=== PATIENT | male | born 2000 | race Caucasian/White ===

== ENCOUNTER 2020-10-01 10:34 | Emergency (ER) | payer OTHER, SELFPAY ==
[2020-10-01 10:36] VITALS: BP 126/62; PULSE 63; RESP 15; TEMP 36.3; O2SAT 99; BMI 25.7
--- NOTE | 2020-10-01 10:48 | NURSING ---
NO OLD EKGS
--- NOTE | 2020-10-01 10:59 | EKG12_ITS ---
Test Reason : CP Blood Pressure : / mmHG Vent. Rate : 059 BPM Atrial Rate : 059 BPM P-R Int : 154 ms QRS Dur : 096 ms QT Int : 422 ms P-R-T Axes : 057 040 035 degrees QTc Int : 417 ms Sinus bradycardia with sinus arrhythmia Otherwise normal ECG Confirmed by FELY DAWN, ALONDRA ([id number]), editor trade journal MULUGETA LEONARDO ([id number]) on 10/03/2020 10:39:39 A M Referred By: Confirmed By:BEAN GEIGER MD
--- NOTE | 2020-10-01 11:05 | EDS_ITS ---
HPI History of Present Illness Chief Complaint: Chest Pain Informant: patient Onset/Context/Timing Onset: Today Activity at onset: sudden Timing: Continuous Quality: Positive for Sharp Location: Left Parasternal Worsened By: Movement of Torso, Palpation and Breathing Relieved By: Nothing Associated Symptoms: Positive for Nausea, Diaphoresis and Dyspnea; Negative for Vomiting, Cough, Fever, Lightheadedness, Acid Reflux and Palpitations Narrative Narrative: Patient presents with chest pain that began today while he was at work. Patient states the pain is over the left parasternal area. Patient states the pain is sharp. Patient states pain is worse with deep breathing and palpation. Patient admits to some nausea and some shortness of breath. Patient states he did feel his heart racing earlier but states it stopped when he got to the emergency department. Patient admits to some diaphoresis. Patient denies any cough or fevers. Patient denies any lightheadedness or dizziness. Patient denies any radiation of the pain. Patient is a smoker. Patient denies any other cardiac or PE risk factors. CVD Risk Factors: Positive for Smoking; Negative for Hypertension, Diabetes, Hypercholesterolemia and Family History 1' </=55 PE Risk Factors: Negative for Recent Travel/Surgery, Recent Immobilization, Prior DVT or PE and Cancer [facility] Medical History Appendicitis Staphylococcus infection Home Medications NK 10/01/20 [History Last Taken Unknown] Allergy/AdvReac Type Severity Reaction Status Date / Time bee venom protein (honey bee) Allergy Anaphylaxis Verified 10/01/20 10:35 Surgical History H/O elbow surgery Social History Smoking Status: Current every day smoker tobacco type: cigarettes ROS ROS ED Constitutional Constitutional ED: Reports sweats; Denies chills or fever(s) Eyes Eyes: Reports blurry vision; Denies diplopia ENT ENT ED: Denies rhinorrhea or sore throat Cardiovascular Cardiovascular: Reports chest pain, palpitations and racing heartbeat Respiratory/Chest Respiratory/Chest: Reports dyspnea; Denies cough Gastrointestinal Gastrointestinal: Reports nausea; Denies abdominal pain or vomiting Genitourinary Genitourinary ED: Denies dysuria or hematuria Musculoskeletal Musculoskeletal: Denies back pain or neck pain Integumentary Denies abscess or rash Neurologic Neurologic: Denies headache(s) or weakness Allergic/Immunologic Allergic/Immunologic ED: Denies mouth swelling or urticaria EXAM Physical Exam Const Vital Signs: 10/01/20 10:36 10/01/20 10:45 10/01/20 11:09 Temperature 97.4 F L Temperature Source Temporal Pulse Rate 63 Respiratory Rate 15 Respiratory Effort Normal Non-Labored Respiratory Pattern Normal Blood Pressure 126/62 H Blood Pressure Mean 83 Pulse Ox 99 Oxygen Delivery Method Room Air Room Air 10/01/20 12:35 Temperature Temperature Source Pulse Rate 59 L Respiratory Rate 15 Respiratory Effort Respiratory Pattern Blood Pressure Blood Pressure Mean Pulse Ox 98 Oxygen Delivery Method Room Air Positive well nourished and well developed General Appearance ED: well developed HEENT normocephalic and atraumatic Eyes PERRL and EOMs intact bilaterally Neck supple and no JVD Chest Wall inspection of chest normal Chest: tenderness pectoral muscle left and sternum Resp normal respiratory effort and clear to auscultation bilaterally Effort and Inspection: Negative for respiratory distress Cardio regular rate, regular rhythm and no murmurs GI normal to inspection, nondistended, normoactive bowel sounds, soft to palpation, non-tender and non-distended Extremity normal to inspection General Extremety ED: Negative for edema or tenderness General Extremity: Negative for edema Neuro oriented x3, CN's II-XII intact bilaterally and no sensory deficits noted Sensorium / Orientation: awake and alert Motor Exam: strength 5/5 throughout Psych mental status grossly normal Heart Score History: Slightly/Non-Suspicious ECG: Normal Age: </= 45 years Risk Factors: 1 or 2 Risk Factors Troponin: </= Normal Limit Score: 1 MDM MDM MDM Narrative Medical decision making narrative: Patient was given aspirin here. EKG was obtained. On my interpretation, it showed a normal sinus rhythm with a rate of 59. MT interval, QRS interval, and QTc intervals were all normal. [place] was normal. There are no acute ST or T wave changes. Portable 1 view chest x-ray was obtained. On my interpretation, lung hatfield are clear. There is normal cardiac silhouette. Bony thorax is normal. There is no acute process noted. Radiologist also interpreted the x-ray and agrees. CBC, basic metabolic profile, and troponin were obtained and were all within normal limits. Patient has a HEART score of 1. Patient was advised that this is low risk for acute cardiac event. Patient was advised that this most likely is musculoskeletal cause of his chest pain. Patient was instructed to take Tylenol or ibuprofen as needed for pain. Patient was instructed to follow-up with his primary care physician in 5 to 7 days. Patient understood and was agreeable with the plan. All questions were answered. Lab Data Labs: Laboratory Results - last 24 hr 10/01/20 10/01/20 11:05 11:05 WBC 5.8 RBC 4.86 Hgb 14.4 Hct 42.7 MCV 87.9 MCH 29.6 MCHC 33.7 RDW Std Deviation 39.3 RDW Coeff of Jaguar 12.0 Plt Count 175 MPV 9.6 Immature Gran % (Auto) 0.700 Neut % (Auto) 63.1 Lymph % (Auto) 23.3 [place] % (Auto) 9.0 Eos % (Auto) 3.6 Baso % (Auto) 0.3 Absolute Neuts (auto) 3.7 Absolute Lymphs (auto) 1.35 Nucleated RBC % 0 Sodium 139 Potassium 4.0 Chloride 105 Carbon Dioxide 30.0 Anion Gap 4 L BUN 16 Creatinine 0.86 Estim Creat Clear Calc 159.30 Est GFR (MDRD) Af Amer 144 Est GFR (MDRD) Non-Af 119 BUN/Creatinine Ratio 18.5 Glucose 82 Calcium 9.0 Troponin I < 0.015 Radiography Chest X-Ray - ED: 1 View, Read by ED Physician, Read by Radiologist and Normal Diagnostic Testing: Radiology Impression Chest X-Ray 10/01/20 11:20 IMPRESSION: Normal x-ray examination of the chest. Electronically Signed: Nuno Lozano MD at 11:54 EDT , Service support , EKG Initial EKG: Attestation: I personally reviewed and interpreted this EKG as follows: Interpretation: Sinus Rhythm (59) and No Acute Injury Pattern Prior EKG tracings: not available for review Discharge Plan Triage Chief Complaint: Chest Pain ED Provider: Genrty Pink Dx/Rx/DC Orders Clinical Impression: Chest pain of uncertain etiology Instructions: ED Chest Pain, Uncertain Cause Prescriptions: No Action NK RF: 0 Stand Alone Forms: ED Work / School Excuse Primary Care Provider: Deann Howard NP Referrals: Deann Howard NP, [employer] [Primary Care Provider] - 5-7 Days Disposition Disposition: Home, self care
[2020-10-01] MEDS: Aspirin 81 MG TAB.CHEW 324 MG PO (11:13)
[2020-10-01 11:16] LABS: Absolute Lymphocyte Count 1.35 X10^3/uL (0.83-4.51); Absolute Neutrophil Count 3.7 X10^3/uL (2.0-7.7); Basophil# 0.02 X10^3/uL; Basophil% 0.3 % (0-1); Eosinophil# 0.21 X10^3/uL; Eosinophils% 3.6 % (0-5); Hematocrit 42.7 % (40-54); Hemoglobin 14.4 g/dL (13.0-16.5); Lymphocyte # 1.35 X10^3/ul (0.83-4.51); Lymphocyte % 23.3 % (19-41); Mean Corp Hgb Conc 33.7 g/dL (32-36); Mean Corpuscular Hgb 29.6 pg (27.0-32.0); Mean Corpuscular Volume 87.9 fL (80-94); Mean Platelet Vol. 9.6 fl (6.2-12.0); Monocyte# 0.52 X10^3/uL; NRBC Flagged by Analyzer 0 % (0-5); Neutrophil # 3.65 X10^3/uL (2.7-7.7); Neutrophil % 63.1 % (47-70); Platelet Count 175 K/mm3 (150-450); RBC Distribution Width SD 39.3 fl (35.1-43.9); Red Blood Count 4.86 M/mm3 (4.6-6.2); White Blood Count 5.8 K/mm3 (4.4-11.0)
--- NOTE | 2020-10-01 11:20 | RAD_ITS ---
STUDY: X-RAY CHEST REASON FOR EXAM: Male, 19 years old. Chest pain TECHNIQUE: Single AP portable view of the chest. COMPARISON: None. FINDINGS: EKG electrodes are seen. The lungs are clear and expanded. There is no demonstrated pleural abnormality. Normal size heart. Normal mediastinum and silas. Normal visualized pulmonary arteries. Normal visualized aortic arch and descending thoracic aorta. Normal visualized thoracic spine. Normal visualized ribs, clavicles, and shoulders. There is no demonstrated abnormality of the visualized soft tissue structures of the upper abdomen. RAD/Chest 1 View (Portable) IMPRESSION: Normal x-ray examination of the chest. Electronically Signed: Nuno Lozano MD at 11:54 EDT , Service support ,
[2020-10-01 11:34] LABS: Anion Gap 4 (5-15); BUN 16 mg/dL (7-18); BUN/Creat Ratio 18.5 RATIO (10-20); Chloride 105 mmol/L (98-107); Creatinine, Serum 0.86 mg/dL (0.70-1.30); EST Glomerular Filtration Rate 119 mL/min (>60); Est Glom Filt Rate - Afr Amer 144 mL/min (>60); Glucose 82 mg/dL (74-106); Sodium Level 139 mmol/L (136-145)
[2020-10-01 12:35] VITALS: PULSE 59; RESP 15; O2SAT 98
[2020-10-01 12:49] VITALS: BP 155/54; PULSE 55; RESP 2; O2SAT 99
== END 2020-10-01 12:51 | disposition home or self-care (01) ==
PROVIDERS: Emergency Provider Emergency Medicine; PCP Nurse Practitioner Family
DX: R07.9 Chest pain, unspecified (principal); R06.02 Shortness of breath; R11.0 Nausea; F17.210 Nicotine dependence, cigarettes, uncomplicated
CPT/HCPCS: 71045; 80048; 84484; 85025; 93005; 99285

== ENCOUNTER 2020-11-04 07:06 | Emergency (ER) | payer OTHER, SELFPAY ==
[2020-11-04 07:07] VITALS: BP 138/69; PULSE 58; RESP 16; TEMP 37.1; O2SAT 98; BMI 25.5
--- NOTE | 2020-11-04 07:32 | CT_ITS ---
STUDY: CT BRAIN WITHOUT CONTRAST REASON FOR EXAM: Male, 19 years old. Injury RADIATION DOSAGE (If Supplied By Facility): CTDIvol = ( 44.99 ) mGy, DLP = ( 745.49 ) mGycm TECHNIQUE: Transaxial CT imaging of the brain was performed without administration of intravenous contrast material. Individualized dose optimization techniques were used for this CT. COMPARISON: None. FINDINGS: There is no acute bleed or infarct. There are normal white matter tracts. The ventricles are normal in configuration. There is no hydrocephalus. The visualized paranasal sinuses are clear. The mastoid air cells are well aerated. There is no skull fracture. CT/Brain/Head without Contrast IMPRESSION: No acute intracranial abnormality. Electronically Signed: Clinton Ledesma MD at 8:57 EDT Tel , Service support ,
--- NOTE | 2020-11-04 07:32 | CT_ITS ---
STUDY: CT FACIAL BONES WITHOUT CONTRAST REASON FOR EXAM: Male, 19 years old. Injury RADIATION DOSAGE (If Supplied By Facility): CTDIvol = ( 29.38 ) mGy, DLP = ( 554.80 ) mGycm TECHNIQUE: The patient was scanned in a multi detector CT scanner. Sagittal and coronal images were reconstructed. Individualized dose optimization techniques were used for this CT. COMPARISON: None. FINDINGS: Normal soft tissue structures. Normal orbital tracey and orbital contents. Normal nasal bones and anterior nasal spine. Normal facial bones. There is no demonstrated fracture. Normal visualized paranasal sinuses. CT/Sinus/Facial Bone IMPRESSION: Normal unenhanced CT of the facial bones. Electronically Signed: Clinton Ledesma MD at 9:05 EDT Tel , Service support ,
--- NOTE | 2020-11-04 07:33 | EDS_ITS ---
HPI History of Present Illness Chief Complaint: Head Injury Detail of Chief Complaint: Head and face injury while at work about 45 minutes ago Informant: patient Onset/Context/Timing Current Severity: 09/25 Narrative Narrative: Patient presents to the emergency department from work after sustaining head and face injury. 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 The centerless grinder tender struck him on the right side of the helmet and forehead causing him to almost lose consciousness he states. Patient states everything kind of went dark and currently is complaining of headache and some blurred vision. Patient rates his headache a 6 out of 10. Patient also states that his entire face is numb. He denies any neck pain or paresthesias in his arms. Patient states that the centerless grinder tender broke the top of the helmet. Patient did not sustain any lacerations. He has no medical history otherwise. [facility] Medical History (Updated 11/04/20 @ 09:[address] Oneil Llanes DO) Anxiety Appendicitis Bipolar disorder Staphylococcus infection Home Medications NK 10/01/20 [History Last Taken Unknown] Allergy/AdvReac Type Severity Reaction Status Date / Time bee venom protein (honey bee) Allergy Anaphylaxis Verified 10/01/20 10:35 Surgical History H/O elbow surgery Social History Smoking Status: Current every day smoker tobacco type: cigarettes and e- cigarettes ROS ROS ED Constitutional Constitutional ED: Reports systems reviewed and no addt'l complaints, except as documented; Denies body ache(s), change in weight or chills Eyes Eyes: Reports blurry vision; Denies acute decrease in peripheral vision, change in vision, double vision or loss of vision ENT ENT ED: Reports none; Denies ear pain, lip swelling, loss taste/smell, neck pain, otalgia or sore throat Cardiovascular Cardiovascular: Reports none; Denies abdominal pain, chest pain with activity, leg edema, lightheadedness, palpitations, rapid heart rate or syncope Respiratory/Chest Respiratory/Chest: Reports none; Denies change in mental status, dry cough, dyspnea, hemoptysis, shortness of breath at rest or shortness of breath with exertion Gastrointestinal Gastrointestinal: Reports none; Denies abdominal pain, change in stool character, diarrhea, hematemesis, hematochezia, melena, rectal bleeding or vomiting Genitourinary Genitourinary ED: Reports none; Denies abdominal discomfort, anuria, dysuria, genital pain or polyuria Musculoskeletal Musculoskeletal: Reports none; Denies arthralgias, back pain, difficulty wal ran, extremity pain, muscle weakness or myalgias Integumentary Reports none; Denies abscess or rash Neurologic Neurologic: Reports none, headache(s) and paresthesias; Denies abnormal gait, confusion, focal weakness, frequent falls, loss of vision, numbness, radicular pain, vertigo or weakness Psychiatric Psychiatric: Reports systems reviewed and no addt'l complaints, except as documented and none; Denies behavioral changes, confusion, difficulty concentrating, hallucinations, suicidal ideation, tactile hallucinations or visual hallucinations Endocrine Endocrinology: Denies none, cold intolerance, excessive sweating, fatigue or heat intolerance Hematologic/Lymphatic Hematologic/Lymphatic: Reports none; Denies anemia, easy bleeding or easy bruising Allergic/Immunologic Allergic/Immunologic ED: Denies as per HPI, none, lip swelling, mouth swelling, throat swelling, tongue swelling or hives EXAM Physical Exam Const Vital Signs: 11/04/20 07:07 11/04/20 07:17 Temperature 98.7 F Temperature Source Oral Pulse Rate 58 L Respiratory Rate 16 Respiratory Effort Normal Non-Labored Respiratory Depth Normal Respiratory Pattern Normal Blood Pressure 138/69 H Blood Pressure Mean 92 Pulse Ox 98 Oxygen Delivery Method Room Air Room Air Positive well nourished and well developed General Appearance ED: well developed and NAD HEENT Reports TM's clear and moist mucous membranes HEENT Narrative: Patient has tenderness palpation over the right mandible as well as right zygomatic arch. No significant ecchymosis or bruising or soft tissue swelling noted. I do not appreciate any malocclusion although patient states that his teeth do not quite feel like they fit together normally. normocephalic and atraumatic; Negative for trauma or tenderness Tympanic Membrane ED: Yes TM's clear Eyes PERRL and EOMs intact bilaterally General Eye ED: Negative for pale conjunctiva or scleral icterus Neck no lymphadenopathy, supple and no JVD Neck Narrative: No midline tenderness on exam of the cervical spine. He got some mild tenderness over the right cervical paraspinal musculature. General: Negative for tenderness Chest Wall inspection of chest normal and palpation of chest normal Chest: Negative for tenderness Resp normal respiratory effort and clear to auscultation bilaterally Effort and Inspection: Negative for respiratory distress or pain with movement Auscultation: Negative for rhonchi, wheezes or diminished lung sounds Cardio regular rate, regular rhythm, S1 normal heart sound, S2 normal heart sound and no murmurs Peripheral Pulses: pulses 2+ throughout GI normal to inspection, nondistended, normoactive bowel sounds, soft to palpation, non-tender, non-distended and no masses Back/Spine no CVA tenderness and no thoracic nor lumbar tenderness Extremity normal to inspection General Extremety ED: Negative for edema General Extremity: Negative for edema Neuro oriented x3, CN's II-XII intact bilaterally, no sensory deficits noted and gait normal Sensorium / Orientation: awake, alert, oriented to person, oriented to place and oriented to time Motor Exam: strength 5/5 throughout and strength abnormal Psych mental status grossly normal Skin no rashes or lesions noted and no wounds MDM MDM MDM Narrative Medical decision making narrative: CT imaging of head and facial bones was unremarkable. I suspect patient likely has mild concussion. We will give him some work restrictions. Patient advised use ibuprofen or Tylenol for discomfort . Patient to follow-up with [facility] care in 3 to 5 days. Radiography Diagnostic Testing: Radiology Impression Brain CT 11/04/20 07:32 IMPRESSION: No acute intracranial abnormality. Electronically Signed: Clinton Ledesma MD at 8:57 EDT Tel , Service support , Discharge Plan Triage Chief Complaint: Head Injury ED Provider: Oneil Llanes Dx/Rx/DC Orders Clinical Impression: Closed head injury, Concussion, Contusion of face Instructions: ED Concussion, ED Facial Contusion Prescriptions: No Action NK RF: 0 Primary Care Provider: Deann Howard NP [facility] [GROUP OF PHYSICIANS] - 3-5 Days Deann Howard NP, [employer] [Primary Care Provider] - Disposition Disposition: Home, Self Care
--- NOTE | 2020-11-04 07:46 | ED.RN ---
corporate care notified of required testing
[2020-11-04 09:15] VITALS: BP 128/80; PULSE 51; RESP 16; O2SAT 97
== END 2020-11-04 09:17 | disposition home or self-care (01) ==
PROVIDERS: Emergency Provider Emergency Medicine; PCP Nurse Practitioner Family
DX: S06.0X9A Concussion with loss of consciousness of unspecified duration, initial encounter (principal); S00.83XA Contusion of other part of head, initial encounter; W20.8XXA Other cause of strike by thrown, projected or falling object, initial encounter; Y93.9 Activity, unspecified; Y92.9 Unspecified place or not applicable; Y99.0 Civilian activity done for income or pay; F17.210 Nicotine dependence, cigarettes, uncomplicated
CPT/HCPCS: 70450; 70486; 99282

== ENCOUNTER 2020-11-11 10:44 | Emergency (ER) | payer OTHER, SELFPAY ==
[2020-11-11 10:46] VITALS: BP 116/60; PULSE 52; RESP 16; TEMP 36.7; O2SAT 100; BMI 24.3
--- NOTE | 2020-11-11 11:03 | EKG12_ITS ---
Test Reason : PALP Blood Pressure : / mmHG Vent. Rate : 053 BPM Atrial Rate : 053 BPM P-R Int : 156 ms QRS Dur : 098 ms QT Int : 462 ms P-R-T Axes : 043 040 022 degrees QTc Int : 433 ms Sinus bradycardia with sinus arrhythmia Otherwise normal ECG Confirmed by MAHAD DAWN, TIMUR ([id number]), acquisition editor MULUGETA LEONARDO ([id number]) on 11/13/2020 9:57:59 AM Referred By: BRENDA Confirmed By:TIMUR TOBIN MD
--- NOTE | 2020-11-11 11:05 | EDS_ITS ---
HPI History of Present Illness Chief Complaint: Confusion Informant: patient Onset/Context/Timing Onset: Today Context: Sudden Onset Timing: Intermittent Quality: Weakness, numbness Location: Generalized Worsened by: Movement, standing Relieved by: Nothing Narrative Narrative: Patient presents with palpitations that began today while he was at work. 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 Patient states the heat from the wild caught some pain in his chest. Patient states after that he felt like his heart was racing. Patient states this would come and go. Patient states it would last for a few seconds and then resolved. Patient states she also has been having some generalized weakness and numbness. Patient states this is worse with standing and with movement. Patient denies any shortness of breath. Patient denies any nausea or vomiting. Patient denies any fevers or chills. [facility] Medical History Anxiety Appendicitis Bipolar disorder Staphylococcus infection Home Medications NK 10/01/20 [History Last Taken Unknown] Allergy/AdvReac Type Severity Reaction Status Date / Time bee venom protein (honey bee) Allergy Anaphylaxis Verified 11/11/20 11:19 Surgical History H/O elbow surgery Social History Smoking Status: Current every day smoker tobacco type: cigarettes ROS ROS ED Constitutional Constitutional ED: Denies chills or fever(s) Eyes Eyes: Denies blurry vision or change in vision ENT ENT ED: Denies rhinorrhea or sore throat Cardiovascular Cardiovascular: Reports chest pain and palpitations Respiratory/Chest Respiratory/Chest: Denies cough or dyspnea Gastrointestinal Gastrointestinal: Reports nausea; Denies abdominal pain or vomiting Genitourinary Genitourinary ED: Denies dysuria or hematuria Musculoskeletal Musculoskeletal: Denies back pain or neck pain Integumentary Denies abscess or rash Neurologic Neurologic: Reports paresthesias; Denies headache(s) or weakness Allergic/Immunologic Allergic/Immunologic ED: Denies mouth swelling or urticaria EXAM Physical Exam Const Vital Signs: 11/11/20 10:46 11/11/20 11:15 Temperature 98.0 F Temperature Source Temporal Pulse Rate 52 L 66 Respiratory Rate 16 18 Respiratory Pattern Normal Blood Pressure 116/60 Blood Pressure Mean 78 Pulse Ox 100 Oxygen Delivery Method Room Air Positive well nourished and well developed General Appearance ED: well developed HEENT Reports moist mucous membranes Neck supple and no JVD Resp normal respiratory effort Auscultation: diminished lung sounds diffuse Cardio regular rate and regular rhythm GI normal to inspection, nondistended, normoactive bowel sounds and non-tender Palpation: soft Neuro oriented x3, CN's II-XII intact bilaterally and no sensory deficits noted Sensorium / Orientation: alert Motor Exam: strength 5/5 throughout Psych mental status grossly normal Skin no rashes or lesions noted MDM MDM MDM Narrative Medical decision making narrative: EKG was obtained. On my interpretation, it showed a sinus bradycardia with a rate of 53. ID interval, QRS interval, and QTc intervals were all normal. [place] was normal. There are no acute ST or T wave changes. Portable 1 view chest x-ray was obtained. On my interpretation, lung hatfield are clear. There is normal cardiac silhouette. Bony thorax is nor mal. There is no acute process noted. Radiologist also interpreted the x-ray and agrees. CBC was within normal limits. Comprehensive metabolic profile was normal. High-sensitivity troponin was normal. Patient feels better on reevaluation wants to go home. Patient was instructed to follow-up with his primary care physician in 5 to 7 days. Patient was instructed to return if worse in any way. Patient understood and was agreeable with the plan. All questions were answered. Lab Data Attestation: I reviewed the patient's lab results. Labs: Laboratory Results - last 24 hr 11/11/20 11/11/20 11:03 11:03 WBC 7.4 RBC 5.19 Hgb 15.3 Hct 45.1 MCV 86.9 MCH 29.5 MCHC 33.9 RDW Std Deviation 38.9 RDW Coeff of Jaguar 12.2 Plt Count 223 MPV 9.9 Immature Gran % (Auto) 1.600 H Neut % (Auto) 62.5 Lymph % (Auto) 24.3 [place] % (Auto) 9.4 Eos % (Auto) 1.9 Baso % (Auto) 0.3 Absolute Neuts (auto) 4.6 Absolute Lymphs (auto) 1.80 Nucleated RBC % 0 Sodium 138 Potassium 3.9 Chloride 104 Carbon Dioxide 26.0 Anion Gap 8 BUN 16 Creatinine 0.84 Estim Creat Clear Calc 163.10 Est GFR (MDRD) Af Amer 150 Est GFR (MDRD) Non-Af 124 BUN/Creatinine Ratio 19.2 Glucose 101 Calcium 9.7 Total Bilirubin 0.50 AST 30 ALT 32 Alkaline Phosphatase 101 Troponin I High Sens 3.4 Total Protein 8.1 Albumin 4.6 Globulin 3.5 Albumin/Globulin Ratio 1.3 Radiography Chest X-Ray - ED: 1 View, Read by ED Physician, Read by Radiologist and Normal Diagnostic Testing: Radiology Impression Chest X-Ray 11/11/20 11:15 IMPRESSION: No radiographic evidence of acute cardiopulmonary disease. at 1145 Reported and signed by: Karma Mohan MD Electronically Signed: Karma Mohan MD at 11:44 EDT Tel , Service support , EKG Initial EKG: Attestation: I personally reviewed and interpreted this EKG as follows: Interpretation: No Acute Injury Pattern and Sinus Bradycardia (53) Prior EKG tracings: available for review Prior: Unchanged (10/01/2020) Discharge Plan Triage Chief Complaint: Confusion ED Provider: Gentry Pink Dx/Rx/DC Orders Clinical Impression: Chest pain of uncertain etiology Instructions: ED Chest Pain, Uncertain Cause Prescriptions: No Action NK RF: 0 Stand Alone Forms: ED Work / School Excuse Primary Care Provider: Deann Howard NP Referrals: Deann Howard NP, [employer] [Primary Care Provider] - 3-5 Days Disposition Disposition: Home, Self Care
[2020-11-11 11:15] VITALS: PULSE 66; RESP 18
[2020-11-11 11:15] LABS: Absolute Neutrophil Count 4.6 X10^3/uL (2.0-7.7); Basophil# 0.02 X10^3/uL; Basophil% 0.3 % (0-1); Eosinophil# 0.14 X10^3/uL; Eosinophils% 1.9 % (0-5); Hematocrit 45.1 % (40-54); Hemoglobin 15.3 g/dL (13.0-16.5); Lymphocyte % 24.3 % (19-41); Mean Corp Hgb Conc 33.9 g/dL (32-36); Mean Corpuscular Hgb 29.5 pg (27.0-32.0); Mean Corpuscular Volume 86.9 fL (80-94); Mean Platelet Vol. 9.9 fl (6.2-12.0); Monocyte% 9.4 % (0-10); NRBC Flagged by Analyzer 0 % (0-5); Neutrophil # 4.64 X10^3/uL (2.7-7.7); Neutrophil % 62.5 % (47-70); Platelet Count 223 K/mm3 (150-450); RBC Distribution Width CV 12.2 % (11.6-14.6); RBC Distribution Width SD 38.9 fl (35.1-43.9); Red Blood Count 5.19 M/mm3 (4.6-6.2); White Blood Count 7.4 K/mm3 (4.4-11.0)
--- NOTE | 2020-11-11 11:15 | RAD_ITS ---
HISTORY: Chest pain. TECHNIQUE: XR Chest 1 View. # of images incl. paperwork: 1. COMPARISON: 10/01/2020. FINDINGS: CARDIOMEDIASTINAL STRUCTURES: Cardiac silhouette not enlarged. Mediastinal contour unremarkable. LUNGS: Radiographically clear. PLEURA: No pleural effusion or pneumothorax. OSSEOUS STRUCTURES: Unremarkable. RAD/Chest 1 View (Portable) IMPRESSION: No radiographic evidence of acute cardiopulmonary disease. at 1145 Reported and signed by: Karma Mohan MD Electronically Signed: Karma Mohan MD at 11:44 EDT Tel , Service support ,
[2020-11-11] MEDS: Ipratropium/Albuterol Sulfate 3 ML AMPUL.NEB INHALATION (11:17)
[2020-11-11 11:32] LABS: ALB/GLOB Ratio 1.3 RATIO (0.9-2.4); AST(SGOT) 30 U/L (15-37); Alanine Aminotransfer ALT/SGPT 32 U/L (16-61); Albumin, Serum 4.6 g/dL (3.2-5.0); Alkaline Phosphatase 101 U/L (45-117); Anion Gap 8 (5-15); BUN 16 mg/dL (7-18); BUN/Creat Ratio 19.2 RATIO (10-20); Calcium,Total 9.7 mg/dL (8.5-10.1); Chloride 104 mmol/L (98-107); Creatinine, Serum 0.84 mg/dL (0.70-1.30); EST Glomerular Filtration Rate 124 mL/min (>60); Est Glom Filt Rate - Afr Amer 150 mL/min (>60); Globulin 3.5 g/dL (2.2-4.2); Glucose 101 mg/dL (74-106); Potassium 3.9 mmol/L (3.5-5.1); Protein, Total 8.1 g/dL (6.4-8.2); Sodium Level 138 mmol/L (136-145); Troponin-I HS 3.4 pg/mL (3.0-78.5)
[2020-11-11 12:24] VITALS: BP 122/57; PULSE 74; RESP 16; O2SAT 98
== END 2020-11-11 12:25 | disposition home or self-care (01) ==
PROVIDERS: Emergency Provider Emergency Medicine; PCP Nurse Practitioner Family
DX: R07.9 Chest pain, unspecified (principal); R41.0 Disorientation, unspecified; R53.1 Weakness; R20.0 Anesthesia of skin; R00.2 Palpitations; F31.9 Bipolar disorder, unspecified; F41.9 Anxiety disorder, unspecified; F17.210 Nicotine dependence, cigarettes, uncomplicated
CPT/HCPCS: 71045; 80053; 84484; 85025; 93005; 94640; 99284; A4216

== ENCOUNTER 2023-05-14 12:37 | Emergency (ER) | payer OTHER, SELFPAY ==
[2023-05-14 12:38] VITALS: BP 122/67; PULSE 63; RESP 16; TEMP 36.3; O2SAT 100; BMI 24.7
[2023-05-14] MEDS: Tetracaine 0.5% Ophthalmic Bottle 1 DRP LEFT EYE (13:10)
[2023-05-14] MEDS: Fluorescein 1 MG STRIP 1 STRIP LEFT EYE (13:10)
--- NOTE | 2023-05-14 13:14 | EDS_ITS ---
HPI History of Present Illness Chief Complaint: Eye Problem Detail of Chief Complaint: Bilateral eye discomfort for about 2 weeks. Informant: patient Onset/Context/Timing Location: Bilateral Eyes Onset: Weeks Context: Gradual Onset Timing: Intermittent Current Severity: Mild Maximum Severity: Mild Associated Symptoms Associated Symptoms - Eyes: Pain; Negative for Burning, Crusting, Drainage, Eyelid swelling, Foreign body sensation, Itching, Matting, Photophobia or Redness History of injury: No Visual correction: None, Glasses, Corrective contact lenses and Cosmetic contact lenses Narrative Narrative: 22-year-old male no seen past medical history. No significant eye history does not wear glasses or contacts has never had eye surgery. To the last 2 weeks his eyes been bothering him. Denies any injuries. Prior similar symptoms: No Recent Illness/Hospitalization: No PFSH PFSH Medical History Anxiety Appendicitis Bipolar disorder Staphylococcus infection Home Medications NK 10/01/20 [History Last Taken Unknown] Allergy/AdvReac Type Severity Reaction Status Date / Time bee venom protein (honey bee) Allergy Anaphylaxis Verified 11/11/20 11:19 Surgical History H/O elbow surgery Social History Smoking Status: Current every day smoker tobacco type: cigarettes ROS ROS ED ROS Narrative Denies recent illness. Review of Systems ROS Unobtainable: Denies due to encephalopathy Constitutional Constitutional ED: Denies chills or fever(s) Eyes Eyes: Denies blurry vision, change in vision or diplopia ENT ENT ED: Denies ear pain, rhinorrhea or sore throat Cardiovascular Cardiovascular: Denies chest pain, palpitations or racing heartbeat Respiratory/Chest Respiratory/Chest: Denies cough, dyspnea or dyspnea on exertion Gastrointestinal Gastrointestinal: Denies abdominal pain, constipation, diarrhea, melena, nausea or vomiting Genitourinary Genitourinary ED: Denies dysuria or hematuria Musculoskeletal Musculoskeletal: Denies arthralgias or back pain Integumentary Denies abscess Neurologic Neurologic: Denies headache(s) Psychiatric Psychiatric: Denies anxiety Endocrine Endocrinology: Denies polydipsia Hematologic/Lymphatic Hematologic/Lymphatic: Denies easy bleeding, easy bruising or lymphadenopathy Allergic/Immunologic Allergic/Immunologic ED: Denies mouth swelling, tongue swelling or urticaria EXAM Physical Exam Narrative Exam Narrative: Well-appearing 22-year-old male. Vital signs stable afebrile. HEENT exam pupils round reactive light extra motions are intact. There noninjected. There are really no significant watering. No discharge. Upper and lower lids are unremarkable both were everted. There are unremarkable. There is no preauricular lymphadenopathy. There is no orbital swelling or tenderness or redness. There is no proptosis. Slit-lamp examination and tetracaine staining of both eyes was performed there is no corneal abrasion or foreign body or other abnormality seen. Lungs clear. Heart regular rhythm. Otherwise exam normal. Const Vital Signs: 05/14/23 12:38 Temperature 97.3 F L Temperature Source Temporal Pulse Rate 63 Respiratory Rate 16 Blood Pressure 122/67 H Blood Pressure Mean 85 Pulse Ox 100 Oxygen Delivery Method Room Air Positive well nourished and well developed; Negative for cachectic, contractures or unkempt General Appearance ED: well developed and NAD; Negative for unkempt, cachectic or contractures Nutritional Appearance: Negative for cachectic HEENT Denies other atraumatic; Negative for trauma, tenderness or other Nose: external nose normal and nares normal Neck no lymphadenopathy, supple and no JVD General: Negative for tenderness Resp normal respiratory effort, no retractions, no use of accessory muscles and clear to auscultation bilaterally Effort and Inspection: Negative for other Cardio regular rate, regular rhythm, S1 normal heart sound, S2 normal heart sound and no murmurs GI non-tender, non-distended and no masses Inspection: Negative for other Auscultation: normoactive bowel sounds Palpation: soft Back/Spine no CVA tenderness General Back: Negative for CVA tenderness Extremity normal to inspection General Extremety ED: Negative for edema General Extremity: Negative for edema Neuro oriented x3, CN's II-XII intact bilaterally, moves all extremities and no sensory deficits noted Sensorium / Orientation: alert, oriented to person, oriented to place and oriented to time; Negative for orientation impaired Motor Exam: strength 5/5 throughout; Negative for general weakness or strength abnormal Psych Appearance: Negative for unkempt Attitude: No agitated Mood & Affect: Negative for depressed, anxious or tearful Skin no wounds Lesions: no lesions Rashes: no rashes Trauma: Negative for abrasion or laceration MDM MDM MDM Narrative Medical decision making narrative: 19-year-old male eye discomfort with normal exam. Visual acuity being obtained. I did do a slit-lamp examination of both eyes which was normal and fluorescein staining which showed no foreign body nor corneal abrasion. He will be discharged home to follow-up with the [facility]. History & Record Review Discussion w/independent historian: Patient Additional record(s) reviewed:: Prior inpatient record, Prior outpatient record, Prior ED visit, Prior labs and No prior records Discharge Plan Triage Chief Complaint: Eye Problem ED Provider: Jn Duff Dx/Rx/DC Orders Clinical Impression: Acute eye pain Prescriptions: No Action NK Primary Care Provider: Deann Howard NP Referrals: Jerad Powell MD [Med Staff - Active Staff] - As soon as possible Deann Howard NP, [employer] [Primary Care Provider] - Activity Restrictions/Additional Instructions: Call the [facility] on Tuesday morning after 8 AM. Tell them you were seen in the emergency department and they are working to be seen either Tuesday or Tuesday. Your exam today is unremarkable. I do not have a specific cause for the pain. There is no infection, foreign body or abrasion to your eye. Disposition Disposition: Home, Self Care
--- OUTSIDE RECORDS SUMMARY | 2023-05-14 13:22 | XMS RPT_ITS | CCD ---
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 from [facility] ED on 05/12/22. 1. How are you feeling since your ED visit? N/A Have your symptoms improved or resolved? Not applicable 2. Were you prescribed any medications while in the ED or advised to stop any medication? Not applicable - If yes, were you able to fill your prescriptions? Not applicable -if stopped medication, what was the medication? N/A 3. Were you advised to schedule a follow up appointment with your provider? Not applicable - If no, Do you feel like you need an appointment scheduled? Not applicable - If yes, Do you need this scheduled now or has this already been scheduled? Not applicable 4. Were you able to contact the office or baton teacher provider prior to your ED visit? Not applicable 5. Is there anything else I can do for you today? Not applicable Eliza Millan MA Allergies As of Date: 05/14/2022 Noted Allergy Reaction BEE VENOM PROTEIN (HONEY BEE) 01/09/2019 10 - Anaphylaxis Date Reviewed: 05/12/2022 Reviewed by: Clinton Pinedo RN - Fully Assessed Prescriptions as of 05/14/2022 - amoxicillin-clavulanic acid (AUGMENTIN) 875-125 mg per tablet Take 1 tablet by mouth twice daily for 3 days. - Chlorhexidine Gluconate (PERIDEX) 0.12 % solution Use 15 mL as instructed twice daily. Rinse around mouth for 30 seconds then expectorate Meds Comments as of 10/10/2017: Unknown antibiotic Problem List As Of Date 05/14/2022 Noted Resolved Cellulitis of left hand [L03.114] 09/21/2017 Tenosynovitis of left hand [M65.9] 09/21/2017 Acute appendicitis [K35.80] 01/11/2014 Chest pain [R07.9] 11/11/2020 Closed head injury [S09.90XA] 11/11/2020 Concussion injury of body structure [S06.0XAA] 11/11/2020 Contusion of face [S00.83XA] 11/11/2020 Asthma [J45.909] 01/06/2022 Bipolar disorder (HCC) [F31.9] 01/06/2022 Loose body in left elbow [M24.022] 01/06/2022 Tobacco use disorder [F17.200] 01/06/2022 Encounter Status:Closed by ELIZA MILLAN on 05/14/22 [facility] 05-14-2022 Note HNO ID: [id number] Author: Eliza Millan MA Service: ? Author Type: Registered Physical Therapist Type: Progress Notes Filed: 05/14/2022 9:25 AM Note Text: ED Follow Up: Left message Patient discharged from [facility] ED on 05/12/22. 1. How are you feeling since your ED visit? N/A Have your symptoms improved or resolved? Not applicable 2. Were you prescribed any medications while in the ED or advised to stop any medication? Not applicable - If yes, were you able to fill your prescriptions? Not applicable -if stopped medication, what was the medication? N/A 3. Were you advised to schedule a follow up appointment with your provider? Not applicable - If no, Do you feel like you need an appointment scheduled? Not applicable - If yes, Do you need this scheduled now or has this already been scheduled? Not applicable 4. Were you able to contact the office or baton teacher provider prior to your ED visit? Not applicable 5. Is there anything else I can do for you today? Not applicable Eliza Millan MA [facility] 05-14-2022 History of Present illness Narrative ED Follow Up: Left message Patient discharged from [facility] ED on 05/12/22. 1. How are you feeling since your ED visit? N/A Have your symptoms improved or resolved? Not applicable 2. Were you prescribed any medications while in the ED or advised to stop any medication? Not applicable - If yes, were you able to fill your prescriptions? Not applicable -if stopped medication, what was the medication? N/A 3. Were you advised to schedule a follow up appointment with your provider? Not applicable - If no, Do you feel like you need an appointment scheduled? Not applicable - If yes, Do you need this scheduled now or has this already been scheduled? Not applicable 4. Were you able to contact the office or baton teacher provider prior to your ED visit? Not applicable 5. Is there anything else I can do for you today? Not applicable Eliza Millan MA documented in this encounter [facility] 01-08-2022 Note HNO ID: [id number] Author: Niru Salguero RN Service: ? Author Type: Registered Nurse Type: Nursing Progress Note Filed: 01/08/2022 10:34 AM Note Text: Clear void via urinal with assist from girlfriend. [facility] 01-08-2022 Note HNO ID: [id number] Author: Niru Salguero RN Service: ? Author Type: Registered Nurse Type: Nursing Progress Note Filed: 01/08/2022 10:27 AM Note Text: Pt snacking on juice and crackers. [facility] 01-08-2022 Note HNO ID: [id number] Author: Niru Salguero RN Service: ? Author Type: Registered Nurse Type: Nursing Progress Note Filed: 01/08/2022 10:19 AM Note Text: Pt sipping apple juice. [facility] 01-08-2022 Note HNO ID: [id number] Author: Niru Salguero RN Service: ? Author Type: Registered Nurse Type: Nursing Progress Note Filed: 01/08/2022 10:02 AM Note Text: Oral airway removed fully intact. [facility] 01-08-2022 Note HNO ID: [id number] Author: Niru Salguero RN Service: ? Author Type: Registered Nurse Type: Nursing Progress Note Filed: 01/08/2022 9:54 AM Note Text: Pt covered with warmer. [facility] 01-08-2022 Note HNO ID: [id number] Author: José Veras MD Service: ? Author Type: Anesthesiologist Type: Anesthesia Procedure Notes Filed: 01/08/2022 10:28 AM Note Text: ANESTHESIOLOGY PROCEDURE NOTE Airway General Information Procedure Start Time/Medication Administration: 01/08/2022 8:25 AM Procedure End Time: 01/08/2022 8:25 AM Patient location during procedure: OR Timeout Performed Pre-procedure: timeout performed Consent Obtained: Yes Patient identity confirmed: arm band and patient Staffing Anesthesiologist: José Veras MD CLOUD AUTOMATION TESTER: FELICE Silva Performed by: CLOUD AUTOMATION TESTER Indications and Patient Condition Indications for airway management: anesthesia and airway protection Preoxygenated: yes Method: asleep Airway Accessory: LMA Final Airway Details Final airway type: supraglottic airway Number of attempts at approach: 1 Final Supraglottic Airway: Size 4 Seal Adequate: yes Airway not difficult SIGNATURE: José Veras MD PATIENT NAME: Ney Lopez DATE: January 08, 2022 TIME: 8:29 AM CSN: [id number] [facility] 12-16-2021 Note HNO ID: [id number] Author: Hanh Bess, DO Service: ? Author Type: Physician Type: Progress Notes Filed: 12/16/2021 12:54 PM Note Text: Follow Up Visit Chief Complaint Ney Lopez is a 20 year old male who presents today for follow up office visit. Patient presents with: Left Elbow - Follow Up, Pain History of Present Illness PAIN EVALUATION 12/16/2021 1009 Pain Level: 7 Pain Location: Elbow-Left Description: Aching;Dull;Sore Duration Amount of Time: -- ongoing Frequency: Continuous Intervention/Comfort measure: Reposition;Relaxation;Medication;O ther: See comment;Cold ibuprofen HPI: Ney Lopez is a 20 year old male for a follow up visit left elbow pain. Patient complains of increase locking in the elbow as well as pain. Most recent injury happened 4 days ago when he hit elbow against car door. Pain history is noted as above. Is there any overall improvement in your condition? No Any new injury, since being seen last: Yes, noted above REVIEW OF SYMPTOMS: Patient did not have, and does not currently have, any weight loss, malaise, fever, chills, headache, chest pain, chest pressure, palpitations, cough, shortness of breath, orthopnea, paroxsymal nocturnal dyspnea, nausea, vomiting, diarrhea, constipation, melena, hematochezia, urinary difficulties, prolonged bleeding, easily bruising, heat or cold intolerance, new onset joint pain or swelling, new onset extremity weakness or numbness, new onset auditory or visual disturbances, lightheadedness, dizziness, partial loss of consciousness or full loss of consciousness. Current Outpatient Medications Medication Sig naproxen (NAPROSYN) 500 mg tablet Take 1 tablet by mouth twice daily as needed (FOR PAIN - TAKE WITH FOOD.). (Patient not taking: Reported on 11/09/2021 ) albuterol HFA (PROAIR HFA) 90 mcg/actuation inhaler Inhale 2 Puffs as instructed every 4 hours as needed. (Patient not taking: Reported on 11/09/2021 ) Current Facility-Administered Medications Medication Dose Route Frequency perflutren lipid microspheres 1.3 mL in NaCl (PF) 0.9% 10 mL injection (DEFINITY) INTRAVENOUS DIRECTED PRN sodium chloride 0.9 % (flush) 10 mL (BD POSIFLUSH) 10 mL INTRAVENOUS DIRECTED PRN Physical Exam Vitals: There were no vitals taken for this visit. Psych: Pleasant, good affect and mood General Appearance: Well appearing, alert, in no acute distress, well-hydrated, well nourished.. Skin: Skin color, texture, turgor normal, no suspicious rashes or lesions. Peripheral Pulses: Normal. Neurologic: Gait normal. Reflexes normal and symmetric. Sensation grossly intact.. Lymph Nodes: No cervical lymphadenopathy, No supraclavicular lymphadenopathy, No axillary lymphadenopathy., and No inguinal lymphadenopathy.. Respiratory: No recent pulmonary infection, hemoptysis, chronic cough, or shortness of breath at rest Rheumatologic: Joint deformities: left elbow pain Right Elbow Exam Right elbow exam is normal. Tenderness The patient is experiencing no tenderness. Range of Motion Extension: normal Flexion: normal Pronation: normal Supination: normal Muscle Strength Pronation: 5/5 Supination: 5/5 Other Erythema: absent Sensation: normal Pulse: present Left Elbow Exam Left elbow exam is normal. Tenderness The patient is experiencing tenderness in the radial capitellar joint. Range of Motion Extension: normal Flexion: normal Pronation: normal Supination: normal Muscle Strength Pronation: 5/5 Supination: 5/5 Other Erythema: absent Sensation: normal Pulse: present Assessment and Plan Radiographs: I have independently reviewed films and my findings are the same. and I have reviewed the images with the patient and family. Last MRI Elbow - Impression Only MRI ELBOW WO [facility] Exam End: 06/11/2021 12:04 PM (Final result) Impression: IMPRESSION: 1. Osteochondral lesion in the capitellum as detailed. ... RESULT: Ulnar collateral ligament: within normal limits. Radial collateral ligament: within normal limits. Lateral ulnar collateral ligament: within normal limits. Common extensor tendon: within normal limits. Common flexor tendon: within normal limits. Biceps tendon: within normal limits. Triceps tendon: within normal limits. Brachialis tendon: within normal limits. Articular cartilage: There is a focal osteochondral lesion involving the anterior aspect of the capitellum which measures 10 x 10 mm with small area of delamination and focal underlying subchondral marrow reactive and cystic changes. Muscles: Normal muscle bulk and signal intensity. Bone marrow: Within normal limits. No fractures or marrow replacing lesions. Nerves: The ulnar nerve is visualized and demonstrates normal position, size and signal intensity. The radial and median nerves are partially seen and appear normal as well. Joint fluid: No joint effusion or (more content not included)... [facility] 12-16-2021 History of Present illness Narrative Images from the original note were not included. Follow Up Visit Chief Complaint Ney Lopez is a 20 year old male who presents today for follow up office visit. Patient presents with: Left Elbow - Follow Up, Pain History of Present Illness PAIN EVALUATION 12/16/2021 1009 Pain Level: 7 Pain Location: Elbow-Left Description: Aching;Dull;Sore Duration Amount of Time: -- ongoing Frequency: Continuous Intervention/Comfort measure: Reposition;Relaxation;Medication;O ther: See comment;Cold ibuprofen HPI: Ney Lopez is a 20 year old male for a follow up visit left elbow pain. Patient complains of increase locking in the elbow as well as pain. Most recent injury happened 4 days ago when he hit elbow against car door. Pain history is noted as above. Is there any overall improvement in your condition? No Any new injury, since being seen last: Yes, noted above REVIEW OF SYMPTOMS: Patient did not have, and does not currently have, any weight loss, malaise, fever, chills, headache, chest pain, chest pressure, palpitations, cough, shortness of breath, orthopnea, paroxsymal nocturnal dyspnea, nausea, vomiting, diarrhea, constipation, melena, hematochezia, urinary difficulties, prolonged bleeding, easily bruising, heat or cold intolerance, new onset joint pain or swelling, new onset extremity weakness or numbness, new onset auditory or visual disturbances, lightheadedness, dizziness, partial loss of consciousness or full loss of consciousness. Current Outpatient Medications Medication Sig naproxen (NAPROSYN) 500 mg tablet Take 1 tablet by mouth twice daily as needed (FOR PAIN - TAKE WITH FOOD.). (Patient not taking: Reported on 11/09/2021 ) albuterol HFA (PROAIR HFA) 90 mcg/actuation inhaler Inhale 2 Puffs as instructed every 4 hours as needed. (Patient not taking: Reported on 11/09/2021 ) Current Facility-Administered Medications Medication Dose Route Frequency perflutren lipid microspheres 1.3 mL in NaCl (PF) 0.9% 10 mL injection (DEFINITY) INTRAVENOUS DIRECTED PRN sodium chloride 0.9 % (flush) 10 mL (BD POSIFLUSH) 10 mL INTRAVENOUS DIRECTED PRN Physical Exam Vitals: There were no vitals taken for this visit. Psych: Pleasant, good affect and mood General Appearance: Well appearing, alert, in no acute distress, well-hydrated, well nourished.. Skin: Skin color, texture, turgor normal, no suspicious rashes or lesions. Peripheral Pulses: Normal. Neurologic: Gait normal. Reflexes normal and symmetric. Sensation grossly intact.. Lymph Nodes: No cervical lymphadenopathy, No supraclavicular lymphadenopathy, No axillary lymphadenopathy., and No inguinal lymphadenopathy.. Respiratory: No recent pulmonary infection, hemoptysis, chronic cough, or shortness of breath at rest Rheumatologic: Joint deformities: left elbow pain Right Elbow Exam Right elbow exam is normal. Tenderness The patient is experiencing no tenderness. Range of Motion Extension: normal Flexion: normal Pronation: normal Supination: normal Muscle Strength Pronation: 5/5 Supination: 5/5 Other Erythema: absent Sensation: normal Pulse: present Left Elbow Exam Left elbow exam is normal. Tenderness The patient is experiencing tenderness in the radial capitellar joint. Range of Motion Extension: normal Flexion: normal Pronation: normal Supination: normal Muscle Strength Pronation: 5/5 Supination: 5/5 Other Erythema: absent Sensation: normal Pulse: present Assessment and Plan Radiographs: I have independently reviewed films and my findings are the same. and I have reviewed the images with the patient and family. Last MRI Elbow - Impression Only MRI ELBOW WO [facility] Exam End: 06/11/2021 12:04 PM (Final result) Impression: IMPRESSION: 1. Osteochondral lesion in the capitellum as detailed. ... RESULT: Ulnar collateral ligament: within normal limits. Radial collateral ligament: within normal limits. Lateral ulnar collateral ligament: within normal limits. Common extensor tendon: within normal limits. Common flexor tendon: within normal limits. Biceps tendon: within normal limits. Triceps tendon: within normal limits. Brachialis tendon: within normal limits. Articular cartilage: There is a focal osteochondral lesion involving the anterior aspect of the capitellum which measures 10 x 10 mm with small area of delamination and focal underlying subchondral marrow reactive and cystic changes. Muscles: Normal muscle bulk and signal intensity. Bone marrow: Within normal limits. No fractures or marrow replacing lesions. Nerves: The ulnar nerve is visualized and demonstrates normal position, size and signal intensity. The radial and median nerves are partially seen and appear normal as well. Joint fluid: No joint effusion or synovitis. Localizer images: No additional findings. Impression: Encounter Diagnosis ICD-10-CM 1. 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 Osteochondral lesion M89.9 M94.9 3. Left elbow pain M25.522 Today, in detail, through a thorough evaluation, we discussed possible etiologies of pain and our plans for further diagnostic and therapeutic interventions. We discussed strategies for decreasing pain and improving strength, stability and motion. Patient's questions were answered in detailed. Patient verbalizes understanding and agrees with the treatment plan as discussed. Left elbow continued locking, proceed with surgical intervention per patient request. Risks and benefits vs alternatives to treatment were discussed with patient. Risks including but not limited to blood loss, blood clot, infection, neurovascular injury, failure of procedure, need for revision operation, loss of life and loss of limb. Patient aware of risks and benefits and agrees to proceed with written consent for surgical intervention. Discussed arthroscopy vs open excision of loose body and drilling of capitellum vs graft; discussed if drilled /graft lesion would be in sling for 6 weeks Will do in concert with my partner dr hay a Tuesday in [place] Patient aware and in agreement of plan. All questions answered. I spent 35 minutes in the visit, with more than 50% of the total [id number] time of the visit in counseling / coordination of care. documented in this encounter [facility] 07-29-2021 Note Patient Outreach (AG INTMLW) TEJANEY D ([id number]) [birth year] M Date Time Provider Department 07/29/21 ELIZA MILLAN AGINTMLW During your visit today, we recorded the following information about you: Eliza Millan MA 07/29/2021 11:09 AM Signed ED Follow Up: Patient discharged from [facility] ED on 07/27/21. 1. How are you feeling since your ED visit? Still hurts Have your symptoms improved or resolved? Same 2. Were you prescribed any medications while in the ED or advised to stop any medication? Yes - If yes, were you able to fill your prescriptions? Yes -if stopped medication, what was the medication? N/A 3. Were you advised to schedule a follow up appointment with your provider? Yes - If no, Do you feel like you need an appointment scheduled? No - If yes, Do you need this scheduled now or has this already been scheduled? No 4. Were you able to contact the office or baton teacher provider prior to your ED visit? No 5. Is there anything else I can do for you today? No Eliza Millan MA Allergies As of Date: 07/29/2021 Noted Allergy Reaction BEE VENOM PROTEIN (HONEY BEE) 01/09/2019 10 - Anaphylaxis Date Reviewed: 07/27/2021 Reviewed by: Lucie Chamorro RN - Fully Assessed Prescriptions as of 07/29/2021 - amoxicillin-clavulanic acid (AUGMENTIN) 875-125 mg per tablet Take 1 tablet by mouth every 12 hours for 7 days. - naproxen (NAPROSYN) 500 mg tablet Take 1 tablet by mouth twice daily as needed (FOR PAIN - TAKE WITH FOOD.). - albuterol HFA (PROAIR HFA) 90 mcg/actuation inhaler Inhale 2 Puffs as instructed every 4 hours as needed. Facility-Administered Medications as of 07/29/2021 - perflutren lipid microspheres 1.3 mL in NaCl (PF) 0.9% 10 mL injection (DEFINITY) - sodium chloride 0.9 % (flush) 10 mL (BD POSIFLUSH) Meds Comments as of 10/10/2017: Unknown antibiotic Problem List As Of Date 07/29/2021 Noted Resolved Cellulitis of left hand [L03.114] 09/21/2017 Tenosynovitis of left hand [M65.9] 09/21/2017 Acute appendicitis [K35.80] 01/11/2014 Chest pain [R07.9] 11/11/2020 Closed head injury [S09.90XA] 11/11/2020 Concussion injury of body structure [S06.0X9A] 11/11/2020 Contusion of face [S00.83XA] 11/11/2020 Encounter Status:Closed by ELIZA MILLAN on 07/29/21 [facility] 07-29-2021 Note HNO ID: [id number] Author: Eliza Millna MA Service: ? Author Type: Registered Physical Therapist Type: Progress Notes Filed: 07/29/2021 11:09 AM Note Text: ED Follow Up: Patient discharged from [facility] ED on 07/27/21. 1. How are you feeling since your ED visit? Still hurts Have your symptoms improved or resolved? Same 2. Were you prescribed any medications while in the ED or advised to stop any medication? Yes - If yes, were you able to fill your prescriptions? Yes -if stopped medication, what was the medication? N/A 3. Were you advised to schedule a follow up appointment with your provider? Yes - If no, Do you feel like you need an appointment scheduled? No - If yes, Do you need this scheduled now or has this already been scheduled? No 4. Were you able to contact the office or baton teacher provider prior to your ED visit? No 5. Is there anything else I can do for you today? No Eliza Millan MA [facility] 07-29-2021 History of Present illness Narrative ED Follow Up: Patient discharged from [facility] ED on 07/27/21. 1. How are you feeling since your ED visit? Still hurts Have your symptoms improved or resolved? Same 2. Were you prescribed any medications while in the ED or advised to stop any medication? Yes - If yes, were you able to fill your prescriptions? Yes -if stopped medication, what was the medication? N/A 3. Were you advised to schedule a follow up appointment with your provider? Yes - If no, Do you feel like you need an appointment scheduled? No - If yes, Do you need this scheduled now or has this already been scheduled? No 4. Were you able to contact the office or baton teacher provider prior to your ED visit? No 5. Is there anything else I can do for you today? No Eliza Millan MA documented in this encounter [facility] 06-17-2021 Note HNO ID: [id number] Author: Lali Elizabeth RN Service: ? Author Type: Registered Nurse Type: Progress Notes Filed: 07/06/2021 8:39 AM Note Text: The patient did not show up for this appointment. [facility] 06-11-2021 Note HNO ID: [id number] Author: Gail Avery, allergist/immunologist Service: ? Author Type: Dam Tender Assistant Type: Progress Notes Filed: 06/11/2021 11:57 AM Note Text: Radiology Service Progress Note PATIENT NAME: Ney Lopez DATE OF SERVICE: June 11, 2021 TIME: 11:56 AM PATIENT IDENTITY VERIFICATION COMPLETED USING TWO (2) IDENTIFIERS: Name and Date of confirmed by patient verbally. FALL SCREENING: Has the patient had 2 falls in the last year or 1 fall with injury or currently using an Ambulatory Assistive Device (Walker, Cane, Wheelchair, Crutches, etc.)? No PATIENT GENDER DATA: Male PATIENT RELEVANT IMPLANT DATA REVIEWED: Yes tattoos, piercings RADIOLOGY DEPARTMENT: MR; Exam(s) Completed: Upper MSK: Elbow, left PERIPHERAL IV DATA: Not applicable SIGNED BY: Gail Avery A.A.S.,RT (R) (CT)(MR) June 11, 2021 11:56 AM [facility] 06-11-2021 History of Present illness Narrative Radiology Service Progress Note PATIENT NAME: Ney Lopez DATE OF SERVICE: June 11, 2021 TIME: 11:56 AM PATIENT IDENTITY VERIFICATION COMPLETED USING TWO (2) IDENTIFIERS: Name and Date of confirmed by patient verbally. FALL SCREENING: Has the patient had 2 falls in the last year or 1 fall with injury or currently using an Ambulatory Assistive Device (Walker, Cane, Wheelchair, Crutches, etc.)? No PATIENT GENDER DATA: Male PATIENT RELEVANT IMPLANT DATA REVIEWED: Yes tattoos, piercings RADIOLOGY DEPARTMENT: MR; Exam(s) Completed: Upper MSK: Elbow, left PERIPHERAL IV DATA: Not applicable SIGNED BY: Yasir HaasAGaston,RT (R) (CT)(MR) June 11, 2021 11:56 AM documented in this encounter [facility] 05-28-2021 Note HNO ID: [id number] Author: Hanh Bess, DO Service: ? Author Type: Physician Type: Progress Notes Filed: 05/28/2021 1:11 PM Note Text: Reason for Visit/Chief Complaint Ney Lopez is a 20 year old male who presents today for a new evaluation of following complaint: Patient presents with: Left Elbow - New, Pain, Swelling History of Present Illness: PAIN EVALUATION 05/28/2021 1123 Pain Level: 4 Pain Location: Elbow-Left Description: Aching;Dull;Burning;Tingling;Numbn ess Duration Amount of Time: 1 worse in last 6 months Duration Units: Years Intervention/Comfort measure: Cold;Heat;Reposition;Relaxation;Me dication HPI: Ney Lopez is a 20 year old male presenting today with left elbow pain and locking. Hurt it 1.5 years ago, worse in last 6 months and causing some numbness into 4/5 fingers. Pain history is noted as above. Denies other pain,, fever, chills or other constitutional symptoms. 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 Has done pt exercises at home and has not been beneficial as still having symptoms. Previous Treatments: Ice: Yes Heat: Yes Brace: No NSAIDs: Yes, samantha cronin antiinflammatories Injections: No Surgeries: No Physical Therapy: No Review of Systems: Patient did not have, and does not currently have, any weight loss, malaise, fever, chills, headache, chest pain, chest pressure, palpitations, cough, shortness of breath, orthopnea, paroxsymal nocturnal dyspnea, nausea, vomiting, diarrhea, constipation, melena, hematochezia, urinary difficulties, prolonged bleeding, easily bruising, heat or cold intolerance, new onset joint pain or swelling, new onset extremity weakness or numbness, new onset auditory or visual disturbances, lightheadedness, dizziness, partial loss of consciousness or full loss of consciousness. Current Outpatient Medications on File Prior to Visit Medication Sig - naproxen (NAPROSYN) 500 mg tablet Take 1 tablet by mouth twice daily as needed (FOR PAIN - TAKE WITH FOOD.). - albuterol HFA (PROAIR HFA) 90 mcg/actuation inhaler Inhale 2 Puffs as instructed every 4 hours as needed. Current Facility-Administered Medications on File Prior to Visit Medication - perflutren lipid microspheres 1.3 mL in NaCl (PF) 0.9% 10 mL injection (DEFINITY) - sodium chloride 0.9 % (flush) 10 mL (BD POSIFLUSH) ALLERGIES Allergen Reactions - Bee Venom Protein (* Anaphylaxis Physical Exam: Vitals: There were no vitals taken for this visit. Psych: Pleasant, good affect and mood General Appearance: Well appearing, alert, in no acute distress, well-hydrated, well nourished.. Skin: Skin color, texture, turgor normal, no suspicious rashes or lesions. Peripheral Pulses: Normal. Neurologic: Gait normal. Reflexes normal and symmetric. Sensation grossly intact.. Lymph Nodes: No cervical lymphadenopathy, No supraclavicular lymphadenopathy, No axillary lymphadenopathy. and No inguinal lymphadenopathy.. Respiratory: No recent pulmonary infection, hemoptysis, chronic cough, or shortness of breath at rest Rheumatologic: Joint deformities: Left elbow pain Right Elbow Exam Right elbow exam is normal. Tenderness The patient is experiencing no tenderness. Range of Motion Extension: normal Flexion: normal Pronation: normal Supination: normal Muscle Strength Pronation: 5/5 Supination: 5/5 Other Erythema: absent Sensation: normal Pulse: present Left Elbow Exam Tenderness The patient is experiencing tenderness in the radial capitellar joint. Range of Motion Extension: normal Flexion: normal Pronation: normal Supination: normal Muscle Strength Pronation: 5/5 Supination: 5/5 Tests Tinel's sign (cubital tunnel): positive Other Erythema: absent Sensation: normal Pulse: present Comments: Ttp and locking capitellum with flex/ext of left elbow Imaging: Last XR Elbow - Impression Only XR ELBOW SPECIAL VIEWS AP/LAT/OTHER LEFT Exam End: 05/28/2021 11:07 AM (In process) Complete Results Assessment and Plan: Impression: Encounter Diagnosis ICD-10-CM 1. Left elbow pain M25.522 2. Joint locking M24.80 Plan: B complex vitamin PT exercises- continue Night towel around elbow with loose rubber bands Antiinflammatories as needed If weakness would order EMG/NCS Rest Sleeve brace prn Patient having pain significantly over his radiocapitellar joint as well as advancing Tinel's along from his cubital tunnel and positive cubital tunnel syndrome. We discussed treatment options for his cubital tunnel he is not having any weakness of his ulnar nerve however we will watch this and discussed signs and symptoms to watch for for this patient is most likely compensating and is concerned of the locking of his elbow and feels like he has unjam his elbow in order to get it to extend there is a concerning for loose body not visualized on x-ray and only visualized on MRI so MRI would be the next (more content not included)... [facility] 05-28-2021 Note HNO ID: [id number] Author: RT Kurt(R) Service: ? Author Type: Dam Tender Assistant Type: Progress Notes Filed: 05/28/2021 11:05 AM Note Text: Radiology Service Progress Note PATIENT NAME: Ney Lopez DATE OF SERVICE: May 28, 2021 TIME: 11:05 AM PATIENT IDENTITY VERIFICATION COMPLETED USING TWO (2) IDENTIFIERS: Name and Date of confirmed by patient verbally. FALL SCREENING: Has the patient had 2 falls in the last year or 1 fall with injury or currently using an Ambulatory Assistive Device (Walker, Cane, Wheelchair, Crutches, etc.)? No PATIENT GENDER DATA: Male PATIENT RELEVANT IMPLANT DATA REVIEWED: Not Applicable RADIOLOGY DEPARTMENT: General X-ray: Exam(s) Completed: Upper Extremity X-Ray(s): Elbow, left PERIPHERAL IV DATA: Not applicable SIGNED BY: RT Kurt(R) May 28, 2021 11:05 AM [facility] 05-28-2021 History of Present illness Narrative Radiology Service Progress Note PATIENT NAME: Ney Lopez DATE OF SERVICE: May 28, 2021 TIME: 11:05 AM PATIENT IDENTITY VERIFICATION COMPLETED USING TWO (2) IDENTIFIERS: Name and Date of confirmed by patient verbally. FALL SCREENING: Has the patient had 2 falls in the last year or 1 fall with injury or currently using an Ambulatory Assistive Device (Walker, Cane, Wheelchair, Crutches, etc.)? No PATIENT GENDER DATA: Male PATIENT RELEVANT IMPLANT DATA REVIEWED: Not Applicable RADIOLOGY DEPARTMENT: General X-ray: Exam(s) Completed: Upper Extremity X-Ray(s): Elbow, left PERIPHERAL IV DATA: Not applicable SIGNED BY: RT Kurt(R) May 28, 2021 11:05 AM documented in this encounter [facility] 05-19-2021 Note HNO ID: [id number] Author: Maria Eugenia De La Garza APRN.4[employer] GRADE MATH TEACHER Service: ? Author Type: Nurse Practitioner Type: Progress Notes Filed: 05/19/2021 3:08 PM Note Text: This note was created using Briligriter. Subjective Ney Lopez is a 20 year old male pt of HERMAN Mattson here today for acute visit for complaints of left elbow locking up. Reports he works at [employer] and when he lifts anything heavy it will lock. Reports today it locked up and he was not able to move his arm in any direction. Reports it was locked up for 30-35 mins. States he had another co worker hold and pull on it. It finally unlocked but was very painful 01/25, reports hearing popping and grinding. Reports pain lasted for about an hour after. Reports he was released from work due to it. States he went home and took ibuprofen which helped but then pain started again. Pt reports it just keeps getting worse. Reports his hand will feel tingling and numbness before and after the lock up occurs. Pt reports this has been occurring for years. At least 2017. He reports he has seen ortho in [place] for this. She did see MANDY Chapman in 2020 x 2 for right elbow locking up. He reports they did not see anything wrong. Reports he had surgery on right elbow in the past. Left elbow xr 04/30/20 RESULT: Elbows: No fracture or dislocation bilateral elbows. Joint spaces are maintained. No erosions. No joint effusion. No focal soft tissue swelling seen on radiograph. ? Hands: No fracture or dislocation. Joint spaces are maintained. No erosions. Macro no focal ? Wrist: No fracture or dislocation in the left wrist. Carpal rows are maintained. No erosions. No chondrocalcinosis. No focal soft tissue swelling seen on radiograph. ? ? IMPRESSION IMPRESSION: ? No acute osseous findings bilateral elbows. ? No acute osseous findings bilateral hands. ? No acute osseous findings left wrist. ? PAST MEDICAL HISTORY Diagnosis Date - Cellulitis of left hand 09/21/2017 - Tenosynovitis of left hand 09/21/2017 PAST SURGICAL HISTORY Procedure Laterality Date - APPENDECTOMY HX - ELBOW SURGERY HX History reviewed. No pertinent family history. Social History Tobacco Use - Smoking status: Current Every Day Smoker Packs/day: 1.00 Types: Cigarettes - Smokeless tobacco: Current User Types: Chew Vaping Use - Vaping Use: Never used Substance Use Topics - Alcohol use: Yes Comment: monthly use - Drug use: Yes Types: Marijuana Comment: once every 2-3 months Current Outpatient Medications on File Prior to Visit Medication Sig - ibuprofen (MOTRIN) 800 mg tablet Take 1 tablet by mouth every 6 hours as needed (for pain.). - albuterol HFA (PROAIR HFA) 90 mcg/actuation inhaler Inhale 2 Puffs as instructed every 4 hours as needed. (Patient not taking: Reported on 11/11/2020 ) Current Facility-Administered Medications on File Prior to Visit Medication - perflutren lipid microspheres 1.3 mL in NaCl (PF) 0.9% 10 mL injection (DEFINITY) - sodium chloride 0.9 % (flush) 10 mL (BD POSIFLUSH) Review of Systems Constitutional: Negative for chills and fever. Respiratory: Negative for cough, shortness of breath and wheezing. Cardiovascular: Negative for chest pain, palpitations and leg swelling. Musculoskeletal: Positive for arthralgias. See HPI Neurological: Positive for numbness. Negative for dizziness, light-headedness and headaches. See HPI Objective BP 122/70 (BP Site: Right Arm, BP Position: Sitting, BP Cuff Size: Large Adult) Pulse (!) 58 Temp 36.8 ?C (98.3 ?F) (Oral) Resp 18 Ht 182.9 cm (6') Wt 86.6 kg (191 lb) SpO2 98% BMI 25.90 kg/m? Physical Exam Vitals and nursing note reviewed. Constitutional: Appearance: Normal appearance. Cardiovascular: Rate and Rhythm: Normal rate and regular rhythm. Pulses: Normal pulses. Heart sounds: Normal heart sounds. Pulmonary: Effort: Pulmonary effort is normal. Breath sounds: Normal breath sounds. Musculoskeletal: Right elbow: Normal. Left elbow: Normal range of motion. Tenderness present in medial epicondyle and lateral epicondyle. Skin: General: Skin is warm and dry. Neurological: Mental Status: He is alert and oriented to person, place, and time. Psychiatric: Mood and Affect: Mood normal. Behavior: Behavior normal. Thought Content: Thought content normal. Judgment: Judgment normal. ASSESSMENT/PLAN: 1. Left elbow pain - ICD9: 719.42, ICD10: M25.522 (primary diagnosis) - Acute, probable epicondylitis referral to ortho for evaluation and managment - CONSULT TO ORTHOPAEDICS 2. Joint locking - ICD9: 718.90, ICD10: M24.80 - see above - CONSULT TO ORTHOPAEDICS Maria Eugenia De La Garza APRN.[facility] 01-30-2021 Note Patient Outreach (RIO INTMLW) NEY LOPEZ ([id number]) 0911/00 M Date Time Provider Department 01/30/21 INGA KOCH During your visit today, we recorded the following information about you: Inga Koch LPN 01/30/2021 9:30 AM Signed ED Follow Up: Patient discharged from [facility] ED on . 1. How are you feeling since your ED visit? NA- pt denied the need for phone call. Have your symptoms improved or resolved? Not applicable 2. Were you prescribed any medications while in the ED or advised to stop any medication? Not applicable - If yes, were you able to fill your prescriptions? Not applicable -if stopped medication, what was the medication? NA 3. Were you advised to schedule a follow up appointment with your provider? Not applicable - If no, Do you feel like you need an appointment scheduled? Not applicable - If yes, Do you need this scheduled now or has this already been scheduled? Not applicable 4. Were you able to contact the office or baton teacher provider prior to your ED visit? Not applicable 5. Is there anything else I can do for you today? Not applicable Pt denies the need for telephone call, hung up. Inga Koch LPN Allergies As of Date: 01/30/2021 Noted Allergy Reaction BEE VENOM PROTEIN (HONEY BEE) 01/09/2019 10 - Anaphylaxis Date Reviewed: 11/22/2020 Reviewed by: Rita Mattson APRN.4[employer] GRADE MATH TEACHER - Fully Assessed Reason for Visit: ER F/U [41] Cmt: [facility] ER 01/23/2021 Prescriptions as of 01/30/2021 - ibuprofen (MOTRIN) 800 mg tablet Take 1 tablet by mouth every 6 hours as needed (for pain.). - albuterol HFA (PROAIR HFA) 90 mcg/actuation inhaler Inhale 2 Puffs as instructed every 4 hours as needed. Facility-Administered Medications as of 01/30/2021 - perflutren lipid microspheres 1.3 mL in NaCl (PF) 0.9% 10 mL injection (DEFINITY) - sodium chloride 0.9 % (flush) 10 mL (BD POSIFLUSH) Meds Comments as of 10/10/2017: Unknown antibiotic Problem List As Of Date 01/30/2021 Noted Resolved Cellulitis of left hand [L03.114] 09/21/2017 Tenosynovitis of left hand [M65.9] 09/21/2017 Acute appendicitis [K35.80] 01/11/2014 Chest pain [R07.9] 11/11/2020 Closed head injury [S09.90XA] 11/11/2020 Concussion injury of body structure [S06.0X9A] 11/11/2020 Contusion of face [S00.83XA] 11/11/2020 Encounter Status:Closed by INGA KOCH on 01/30/21 [facility] 01-30-2021 Note HNO ID: [id number] Author: Inga Koch LPN Service: ? Author Type: LICENSED NURSE Type: Progress Notes Filed: 01/30/2021 9:30 AM Note Text: ED Follow Up: Patient discharged from [facility] ED on . 1. How are you feeling since your ED visit? NA- pt denied the need for phone call. Have your symptoms improved or resolved? Not applicable 2. Were you prescribed any medications while in the ED or advised to stop any medication? Not applicable - If yes, were you able to fill your prescriptions? Not applicable -if stopped medication, what was the medication? NA 3. Were you advised to schedule a follow up appointment with your provider? Not applicable - If no, Do you feel like you need an appointment scheduled? Not applicable - If yes, Do you need this scheduled now or has this already been scheduled? Not applicable 4. Were you able to contact the office or baton teacher provider prior to your ED visit? Not applicable 5. Is there anything else I can do for you today? Not applicable Pt denies the need for telephone call, hung up. Inga Koch LPN [facility] 08-05-2020 Note HNO ID: [id number] Author: Amber Belle (Rt) Service: Radiology Author Type: Dam Tender Assistant Type: Progress Notes Filed: 08/05/2020 8:02 PM Note Text: Radiology Service Progress Note PATIENT NAME: Ney Lopez DATE OF SERVICE: August 05, 2020 TIME: 8:02 PM PATIENT IDENTITY VERIFICATION COMPLETED USING TWO (2) IDENTIFIERS: Name and Date of confirmed by patient verbally and Name and Date of confirmed by identification band. FALL SCREENING: Has the patient had 2 falls in the last year or 1 fall with injury or currently using an Ambulatory Assistive Device (Walker, Cane, Wheelchair, Crutches, etc.)? No PATIENT GENDER DATA: Male PATIENT RELEVANT IMPLANT DATA REVIEWED: Yes RADIOLOGY DEPARTMENT: MR; Exam(s) Completed: Upper MSK: Elbow, right PERIPHERAL IV DATA: Not applicable SIGNED BY: DUSTIN DAUGHERTY WINDER TENDER August 05, 2020 8:02 PM [facility] documented in this encounter [facility] note* Diagnosis Pain Generalized pain documented in this encounter [facility] note* Diagnosis Left elbow pain Pain in joint, upper arm documented in this encounter [facility] note* Diagnosis Abnormal auditory perception of left ear- Primary documented in this encounter [facility] for referral (narrative)* Diagnostic Procedure Only (Routine) - Closed Specialty Diagnoses / Procedures Referred By Contac t Referred To Contact XR IMAGING Diagnoses Pain Procedures XR ELBOW SPECIAL VIEWS AP/LAT/OTHER LEFT RADEX ELBOW COMPLETE MINIMUM 3 VIEWS Hanh Bess DO [address] [place] [address] Xr Imaging [facility] Referral ID Status Reason Start Date Expiration Date V isits Requested Visits Authorized [id number] Closed Auto-Generate d Referral 05/26/2021 06/25/2022 1 1 [facility] Summary Purpose Family History No Family History Records FoundNo Family History Records FoundNo Family History Records FoundNo Family History Records FoundNo Family History Records FoundNo Family History Records FoundNo Family History Records FoundNo Family History Records FoundNo Family History Records Found Advance Directives No Advanced Directives Records FoundDocuments on File Type Date Recorded Patient Hydrometer Calibrator Expl anation Advance Directive(s) 07/27/2021 8:29 PM Advance Directive(s) 12/07/2019 10:58 PM Advance Directive(s) 12/01/2019 5:01 PM Advance Directive(s) 08/28/2019 6:02 PM Advance Directive(s) 05/15/2019 4:59 PM Advance Directive(s) 01/15/2019 12:22 AM Advance Directive(s) 01/09/2019 6:23 PM Advance Directive(s) 09/19/2018 1:50 PM Advance Directive(s) 08/29/2018 12:57 PM Advance Directive(s) 06/18/2018 1:42 PM Advance Directive(s) 02/24/2018 3:57 PM Advance Directive(s) 03/23/2017 10:11 AM Advance Directive(s) 02/08/2017 12:42 PM Reason for Referral Specialty Diagnoses / Procedures Referred By Emiliano le Referred To Contact MR IMAGING Diagnoses Left elbow pain Procedures MRI ELBOW WO IVCON LT MRI ANY JT UPPER EXTREMITY W/O CONTRAST Hanh Gamez, [address] [place] [address] [place] [address] Referral ID Status Reason Start Date Expiration Date V isits Requested Visits Authorized [id number] Closed Auto-Generate d Referral 05/28/2021 08/30/2021 1 1 Additional Source Comments (unrecognized sect ion and content) No Status Records FoundNo Status Records FoundNo Status Records FoundNo Status Records FoundNo Status Records FoundNo Status Records FoundNo Status Records FoundNo Status Records FoundNo Status Records Found INFORMATION SOURCE (unrecogn ized section and content) DATE CREATED AUTHOR AUTHOR'S ORGANIZ ATION 07/18/2020 [facility] DATE CREATED AUTHOR AUTHOR'S ORGANIZ ATION 03/28/2021 [facility] DATE CREATED AUTHOR AUTHOR'S ORGANIZ ATION 07/29/2021 [facility] DATE CREATED AUTHOR AUTHOR'S ORGANIZ ATION 01/17/2022 [facility] DATE CREATED AUTHOR AUTHOR'S ORGANIZ ATION 07/20/[address] [facility] DATE CREATED AUTHOR AUTHOR'S ORGANIZ ATION 02/26/2023 [facility] DATE CREATED AUTHOR AUTHOR'S ORGANIZ ATION 03/16/2023 [facility] DATE CREATED AUTHOR AUTHOR'S ORGANIZ ATION 04/01/2023 [facility] Source Comments (unrecognize d section and content) In the event this informatio n is protected by the Federal Confidentiality of Alcohol and Drug Abuse Patient Records regulations: The Federal rules restrict any use of the information to criminally investigate or prosecute any alcohol or drug abuse patient.[facility] the event this information is protected by the Federal Confidentiality of Alcohol and Drug Abuse Patient Records regulations: The Federal rules restrict any use of the information to criminally investigate or prosecute any alcohol or drug abuse patient.[facility] SystemIn the event this information is protected by the Federal Confidentiality of Alcohol and Drug Abuse Patient Records regulations: The Federal rules restrict any use of the information to criminally investigate or prosecute any alcohol or drug abuse patient.[facility] System[facility] the event this information is protected by the Federal Confidentiality of Alcohol and Drug Abuse Patient Records regulations: The Federal rules restrict any use of the information to criminally investigate or prosecute any alcohol or drug abuse patient.[facility] SystemIn the event this information is protected by the Federal Confidentiality of Alcohol and Drug Abuse Patient Records regulations: The Federal rules restrict any use of the information to criminally investigate or prosecute any alcohol or drug abuse patient.[facility] SystemIn the event this information is protected by the Federal Confidentiality of Alcohol and Drug Abuse Patient Records regulations: The Federal rules restrict any use of the information to criminally investigate or prosecute any alcohol or drug abuse patient.[facility] SystemIn the event this information is protected by the Federal Confidentiality of Alcohol and Drug Abuse Patient Records regulations: The Federal rules restrict any use of the information to criminally investigate or prosecute any alcohol or drug abuse patient.[facility] Care Teams (unrecognized sec tion and content) [employer] Worker Relationship Specialty Start Date End Date Rita Mattson APRN.4TH GRADE MATH TEACHER [address] [place], [place] [phone] PCP - General 01/30/16 [employer] Worker Relationship Specialty Start Date End Date Rita Mattson APRN.4[employer] GRADE MATH TEACHER [address] [place], [place] [id number] PCP - General 01/30/16 [employer] Worker Relationship Specialty Start Date End Date Rita Matston APRN.4TH GRADE MATH TEACHER [address] [place], [place] [phone] PCP - General 01/30/16 [employer] Worker Relationship Specialty Start Date End Date Rita Mattson WOOD STAINER.JAMES [address], [place] [phone] PCP - General 01/30/16 [employer] Worker Relationship Specialty Start Date End Date Rita Mattson APRN.JAMES [address] [place], [place] [phone] PCP - General 01/30/16 [employer] Worker Relationship Specialty Start Date End Date Rita Mattson CNP [address] [place], [place] [phone] PCP - General Nurse Practitioner 02/21/23 [employer] Worker Relationship Specialty Start Date End Date Rita Mattson CNP [address] [place], [place] [phone] PCP - General Nurse Practitioner 02/21/23 Reason for Visit (unrecogniz ed section and content) Specialty Diagnoses / Procedures Referred By Contregan t Referred To Contact [facility] Department Diagnoses Osteochondral lesion Left elbow pain Procedures CONSULT PANEL TO ORTHOPAEDICS OFFICE/OUTPATIENT [facility] 60-74 MINUTES Rita Mattson APRN.4TH GRADE MATH TEACHER [address] [place] [address] Hanh Bess DO [address] [place] [id number] Referral ID Status Reason Start Date Expiration Date V isits Requested Visits Authorized [id number] Closed PCP Requested Referral 11/09/2021 11/09/2022 1 1 Reason Onset Date Comments ER F/U 07/02/2022 Reason Comments No Show The appointment was for a [facility] claim. The patient was re-directed to [facility]. Reason Comments Radio Gen RMP Specialty Diagnoses / Procedures Referred By Contac t Referred To Contact XR IMAGING Diagnoses Pain Procedures XR ELBOW SPECIAL VIEWS AP/LAT/OTHER LEFT RADEX ELBOW COMPLETE MINIMUM 3 VIEWS Hanh Bess DO [address] [place] [address] [place] [address] Referral ID Status Reason Start Date Expiration Date V isits Requested Visits Authorized [id number] Closed Auto-Generate d Referral 05/26/2021 06/25/2022 1 1 Reason Comments Radiology MRI Specialty Diagnoses / Procedures Referred By Contac t Referred To Contact MR IMAGING Diagnoses Left elbow pain Procedures MRI ELBOW WO IVCON LT MRI ANY JT UPPER EXTREMITY W/O CONTRAST MATRL Maria Alejandra Hanh Mariee DO [address] [place] [address] [place] [address] Referral ID Status Reason Start Date Expiration Date V isits Requested Visits Authorized [id number] Closed Auto-Generate d Referral 05/28/2021 08/30/2021 1 1 <item> Privacy Markings (unrecogniz ed section and content) Section Author: Melissa Youssef PROHIBITION ON REDISCLOSURE OF CONFIDENTIAL INFORMATION This notice accompanies a disclosure of information concerning a client made to you with the consent of such client. FOR RECORDS PERTAINING TO PATIENTS WHO ARE OR HAVE BEEN ENROLLED IN A CHEMICAL DEPENDENCY/SUBSTANCEABUSE PROGRAM, SOME INFORMATION MAY BE OMITTED. This clinical summary was aggregated from multiple sources. Caution should be exercised in using it in the provision of clinical care. This summary normalizes information from multiple sources, and as a consequence, information in this document may materially change the coding, format and clinical context of patient data. In addition, data may be omitted in some cases. CLINICAL DECISIONS SHOULD BE BASED ON THE PRIMARY CLINICAL RECORDS. [employer] [facility]. provides no warranty or guarantee of the accuracy or completeness of information in this document.
== END 2023-05-14 13:42 | disposition home or self-care (01) ==
PROVIDERS: Emergency Provider Emergency Medicine; PCP Nurse Practitioner Family; Visit Provider Emergency Medicine
DX: H57.13 Ocular pain, bilateral (principal); F17.210 Nicotine dependence, cigarettes, uncomplicated
CPT/HCPCS: 99283